=== PATIENT | female | born 1955 | race Caucasian/White ===

== ENCOUNTER → 2016-10-15 | Outpatient (CLI) | payer BC ==
[~2016-10-15] MED LIST: ASPI-586 PO; ASPI-860 PO; CEPH-507 PO; DOXY100C2 PO; EZET1TAB7 PO; HYDR-3702 PO; HYDR-3754 PO; INSU100C7 SQ; INSU100I21 SC; LOSA100T3; LSNP10T PO; MELO7.5T PO; NEBI2.5T2 PO; NEBI5TAB8 GT; ONDAN4ODT PO
[2016-10-15 14:51] LABS: BASOPHILS % (AUTO) 0 % (0-2); EOSINOPHILS # (AUTO) 0.4 10^3uL; EOSINOPHILS % (AUTO) 5 % (0-4); LYMPHOCYTES # (AUTO) 1.2 X10^3; MEAN CORPUSCULAR HGB CONC 33.7 g/dL (31.0-37.0); MEAN CORPUSCULAR VOLUME 80 FL (80-100); MEAN PLATELET VOLUME 9.6 FL (6.0-9.5); MONOCYTES # (AUTO) 0.6 X10^3; MONOCYTES % (AUTO) 8 % (3-11); NEUTROPHILS # (AUTO) 5.6 X10^3; NEUTROPHILS % (AUTO) 71 % (51-67); PLATELET COUNT 251 10^3uL (150-450); WHITE BLOOD COUNT 7.85 10^3uL (4.0-11.0)
== END ==
LOC: LAB 14:41
PROVIDERS: ATTEND Internal Medicine Hematology & Oncology
DX: D64.9 Anemia, unspecified (principal)
CPT/HCPCS: 36415; 85025